=== PATIENT | female | born 1975 | race Caucasian/White ===

== ENCOUNTER → 2018-08-11 | Outpatient (CLI) | payer BC ==
[~2018-08-11] MED LIST: IBUP-56 PO; LEU3.75I IM ONLY; SUMA100T32 PO
== END ==
LOC: LAB 13:44
DX: N80.9 Endometriosis, unspecified (principal)
CPT/HCPCS: 36415; 83520; 86304

== ENCOUNTER → 2018-09-21 | Outpatient (CLI) | payer BC ==
[~2018-09-21] MED LIST changes: +NORE5TAB8 PO; +ZOLP-350 PO
[2018-09-21 09:05] LABS: PLATELET COUNT, AUTOMATED 301 K/uL (150-450)
--- NOTE | 2018-09-21 09:45 | EKG ---
FACILITY: [facility] PATIENT NAME: RADHA BRIZUELA : [id number] MR: [id number] V: [id number] EXAM DATE: ORDERING PHYSICIAN: DANE LAST TECHNOLOGIST: CHRISTINE Sorensen Reason : PRE-OP PROCEDURES Blood Pressure : / mmHG Vent. Rate : 062 BPM Atrial Rate : 062 BPM P-R Int : 156 ms QRS Dur : 082 ms QT Int : 370 ms P-R-T Axes : 071 080 065 degrees QTc Int : 375 ms Normal sinus rhythm with sinus arrhythmia Normal ECG No previous ECGs available Confirmed by Jean Li ([id number] on 09/21/2018 10:37:34 PM Referred By: SHALA Confirmed By:Jean Moran
== END ==
LOC: LAB 08:41
PROVIDERS: ATTEND Obstetrics & Gynecology
DX: Z01.818 Encounter for other preprocedural examination (principal); N80.9 Endometriosis, unspecified
CPT/HCPCS: 36415; 81001; 82040; 82247; 82310; 82374; 82435; 82565; 82947; 84075; 84132; 84155; 84295; 84443; 84450; 84460; 84520; 84702; 85025; 93005

== ENCOUNTER → 2018-09-21 | Outpatient (CLI) | payer BC ==
[2018-09-21 15:43] LABS: INR 0.99
== END ==
LOC: LAB 14:55
PROVIDERS: ATTEND Emergency Medicine
DX: Z01.812 Encounter for preprocedural laboratory examination (principal)
CPT/HCPCS: 36415; 82746; 85610; 85730; 86850; 86900; 86901

== ENCOUNTER → 2018-11-16 | Outpatient (CLI) | payer BC | LOC: LAB 15:51 | PROVIDERS: ATTEND Obstetrics & Gynecology | DX: N80.9 Endometriosis, unspecified (principal) | CPT/HCPCS: 36415; 82306; 83520; 84443; 85027; 86304 ==